=== PATIENT | female | born 1980 | race Caucasian/White ===

== ENCOUNTER 2016-07-01 09:21 | Emergency (ER) | payer BC, SELFPAY ==
[2016-07-01 09:44] VITALS: TEMP 98.7; BMI 27.1
--- NOTE | 2016-07-01 10:20 | EDPRACDOC ---
- General Information Chief Complaint: Fall Stated Complaint: FALL (RECTAL BLEED) Time Seen by Provider: 07/01/16 10:11 Mode of Arrival: Car Home Medications: Home Medications Dicyclomine HCl [Bentyl] 20 - 40 mg PO QID PRN 03/17/15 Ondansetron [Zofran Odt] 8 mg PO Q8H PRN 03/17/15 Ethinyl Estradiol/Drospirenone [Loryna 3 mg-0.02 mg Tablet] 1 tab PO HS Clonazepam [Klonopin] 2 mg PO BID PRN 10/01/15 Eluxadoline [Viberzi] 100 mg PO BID 10/01/15 Propranolol HCl [Inderal] 60 mg PO BID 10/01/15 Ranitidine [Zantac] 150 mg PO BID 10/01/15 Budesonide [Budesonide EC] 9 mg PO DAILY PRN 07/01/16 Escitalopram Oxalate [Lexapro] 20 mg PO DAILY 07/01/16 Hydromorphone HCl [Dilaudid] 4 mg PO .8-12H PRN 07/01/16 Promethazine HCl 25 mg PO Q6-8H PRN 07/01/16 Quetiapine Fumarate [Seroquel] 50 - 100 mg PO HS 07/01/16 Zonisamide [Zonegran] 200 mg PO HS 07/01/16 Allergies/Adverse Reactions: Allergies Allergy/AdvReac Type Severity Reaction Status Date / Time aspirin [From Fiorinal] Allergy See Verified 07/01/16 10:31 Comments butalbital [From Fiorinal] Allergy See Verified 07/01/16 10:31 Comments caffeine [From Fiorinal] Allergy See Verified 07/01/16 10:31 Comments clindamycin Allergy See Verified 07/01/16 10:31 Comments isoniazid Allergy See Verified 07/01/16 10:31 Comments ketoprofen Allergy See Verified 07/01/16 10:31 Comments NSAIDS (Non-Steroidal Allergy See Verified 07/01/16 10:31 Anti-Inflamma Comments rifampin Allergy See Verified 07/01/16 10:31 Comments - History of Present Illness Onset: TUESDAY HPI: PT STATES THAT SHE FELL ON THE ICE ON TUESDAY, INJURED HER TAILBONE, PT COMPLAINS OF SHARP, STABBING PAIN IN TAILBONE, STATES PAIN IS WORSE WITH SITTING , LAYING AND WALKING. PT STATES THAT SHE WOKE UP THIS MORNING AND HER CLOTHES WERE "SATURATED" WITH BLOOD, STATES SHE HAD A "BLACK, TARRY" BM TODAY WELL. PT STATES NOW HAVING PAIN IN HER LOWER BACK AND ABDOMEN. PT STATES THAT SHE HAS A HX OF "COLITIS", BUT THIS IS DIFFERENT, NO N/V. Bleeding Duration: Reports: Intermittent Bleeding Description: Reports: Spontaneous Recent Use Of: Reports: None Relevant History: Reports: None Prehospital Care: Reports: None Pain Severity: None Vomitus: Reports: None Stools: Reports: Tarry Black Associated Signs and Symptoms: Reports: Abdominal Pain, Other (BACK PAIN) ED Past Medical History - History Reviewed Yes Nurses notes reviewed and agree except as marked - Patient Medical History Cardiac History: Reports: Hypertension GI/ History: Reports: Urinary Tract Infection, PMH GI Yes/No Other (COLITIS) Psychological History: Reports: Anxiety Systemic History: Denies: Cancer Surgical History: Reports: Cholecystectomy - Family Medical History Reports: Cancer (MAT GRANDMOTHER) - Social Medical History Smoking Status: Never smoker ETOH: None Substance Abuse: None EDM Review of Systems - Review of Systems Constitutional: Weakness. negative: Chills, Fever, Fatigue Eyes: negative: Blurred Vision, Double Vision Ears: negative: Drainage, Pain Throat: negative: Pain Nose: negative: Congestion, Discharge Respiratory: negative: Cough, Shortness of Breath, Wheezing Cardiovascular: negative: Chest Pain, Palpitations Gastrointestinal: Melena, Pain. negative: Constipation, Diarrhea, Nausea, Vomiting Genitourinary: negative: Dysuria, Frequency Neurological: Dizziness. negative: Headache, Numbness, Weakness Musculoskeletal: Back Integumentary: No Symptoms Reported - Physical Exam Constitutional: Alert (Awake), No apparent distress Oriented to: Time, Person, Place Last recorded Vital Signs: Last Vital Signs Temp 98.7 F 07/01/16 09:37 Pulse 72 07/01/16 10:07 Resp 14 07/01/16 10:07 BP 109/66 07/01/16 10:07 Pulse Ox 97 07/01/16 10:07 Oxygen Pulse Oxygen Saturation 97 O2 Device Room Air Oxygen Flow Rate Fraction of Inspired Oxygen ( FIO2) - HEENT Head: Normal ( normocephalic) Eye Exam: Normal (PERRL, EOMI, Sclera white) Oropharynx: Normal (Pharynx:Moist without exudate,Gums-no swelling) Tympanic Membrane: Normal ENT EAC: Normal TMJ: Normal Nose: No Symptoms Reported (septum midline) Neck: Normal (FROM, trachea at midline) - Respiratory/Cardiovascular Respiratory: Normal - CTA (BBS clear to auscultation without adventitious sounds ) Cardiovascular: Normal (RRR without murmur, gallop or rub) - GI Auscultation: Normal (NABS) Palpation: Normal (Soft,No rebound or guarding, non distended) Tenderness: Mild, LLQ. negative: Guarding, Rebound, Rigidity Talbert's Sign: Negative Rectal Exam: Heme negative stool, Rectal Tone Stool: Brown - Musculoskeletal Back: Normal (Non-Tender) Extremities: Normal (Normal tone, Pulses 2+ No cyanosis or edema, FROM) - Integumentary Skin: Normal, Warm, Dry Lymphatics: Normal (no adenopathy) - Neurologic Memory Impaired: Normal Motor Function: Normal (Normal tone, Pulses 2+ No cyanosis or edema, FROM) Cranial Nerve: Normal (CN II-X11 intact sensation, strength 5/5) Cerebellar: Normal Mood Description: Normal Perception: Normal - Differential Diagnosis Diverticulosis, Esophagitis, Gastritis, Inflammatory Bowel Dx - Re-evaluation Re-evaluation 1 Re-evaluation Time: 12:46 (STABLE, HEME NEG STOOL) - Results 07/01/16 10:30 07/01/16 10:30 07/01/16 12:43 Laboratory Results - last 24 hr 07/01/16 07/01/16 07/01/16 10:30 10:30 10:30 WBC 7.0 RBC 4.08 L Hgb 12.6 Hct 36.9 MCV 90 MCH 30.9 MCHC 34.2 RDW 13.2 Plt Count 259 MPV 7.9 Neut % (Auto) 63.6 Lymph % (Auto) 27.6 Clay % (Auto) 7.3 Eos % (Auto) 0.8 Baso % (Auto) 0.7 Absolute Neuts (auto) 4.41 Absolute Lymphs (auto) 1.89 Sodium 140 Potassium 4.5 Chloride 108 H Carbon Dioxide 23 Anion Gap 14 BUN 9 Creatinine 0.80 Estimated GFR (MDRD) > 60 Glucose 96 Calculated Osmolality 268 L Calcium 9.6 Corrected Calcium 9.7 Total Bilirubin 0.5 AST 10 L ALT 18 Alkaline Phosphatase 55 Total Protein 7.0 Albumin 3.9 Lipase 113 Urine Color Urine Clarity Urine pH Ur Specific [place] Urine Protein Urine Glucose (UA) Urine Ketones Urine Occult Blood Urine Nitrite Urine Bilirubin Urine Urobilinogen Ur Leukocyte Esterase Urine RBC Urine WBC Ur Epithelial Cells Urine Bacteria Urine Mucus Urine Test Blood Type A POSITIVE Antibody Screen Negative 07/01/16 07/01/16 10:53 10:53 WBC RBC Hgb Hct MCV MCH MCHC RDW Plt Count MPV Neut % (Auto) Lymph % (Auto) Clay % (Auto) Eos % (Auto) Baso % (Auto) Absolute Neuts (auto) Absolute Lymphs (auto) Sodium Potassium Chloride Carbon Dioxide Anion Gap BUN Creatinine Estimated GFR (MDRD) Glucose Calculated Osmolality Calcium Corrected Calcium Total Bilirubin AST ALT Alkaline Phosphatase Total Protein Albumin Lipase Urine Color Yellow Urine Clarity Clear Urine pH 5.0 Ur Specific [place] 1.025 Urine Protein Neg Urine Glucose (UA) Neg Urine Ketones Neg Urine Occult Blood 1+ H Urine Nitrite Neg Urine Bilirubin Neg Urine Urobilinogen <2.0 Ur Leukocyte Esterase Neg Urine RBC 2-5 Urine WBC 0-2 Ur Epithelial Cells 2+ Urine Bacteria Few Urine Mucus Mod H Urine Test Neg Blood Type Antibody Screen - Diagnostic Imaging CT ABD/PELVIS Image interpreted by: Radiologist CT ABDOMEN AND PELVIS WITH CONTRAST TECHNIQUE: Multidetector CT imaging of the abdomen and pelvis was performed using the standard protocol following bolus administration of intravenous contrast. CONTRAST: 80 cc Isovue COMPARISON: 03/17/2015 FINDINGS: Sagittal images of the spine shows no acute fractures. Minimal degenerative changes lower thoracic spine. Sagittal view of the sacrum is unremarkable. The coccyx bone is unremarkable. Enhanced liver is unremarkable. No liver laceration. No lower rib fractures are noted. The lung bases are unremarkable. Bilateral SI joints are unremarkable. Status postcholecystectomy. The pancreas, spleen and adrenal glands are unremarkable. Kidneys are symmetrical in size and enhancement. No hydronephrosis or hydroureter. No renal laceration. Delayed renal images shows bilateral renal symmetrical excretion. Bilateral visualized proximal ureter is unremarkable. Abdominal aorta is unremarkable. Moderate stool and gas noted within right colon and cecum. There is no pericecal inflammation. Status post appendectomy. The terminal ileum is unremarkable. No small bowel obstruction. No ascites or free air. No adenopathy. Moderate stool and gas noted within transverse colon. The descending colon is partially empty collapsed. Some colonic stool noted within partially collapsed sigmoid colon. Some colonic gas noted within rectum. The uterus is anteflexed normal size. No adnexal masses noted. Visualized ovaries are unremarkable. IMPRESSION: 1. No evidence of visceral injury within abdomen or pelvis. 2. No acute fractures are noted. 3. Status postcholecystectomy. 4. No hydronephrosis or hydroureter. 5. Moderate stool and gas noted within cecum and right colon. No pericecal inflammation. Status post appendectomy. 6. No small bowel obstruction. - Additional Information CONTROLLED SUBSTANCE HISTORY REVIEWED, PT REGULARLY RECEIVES DILAUDID [address] BURKS, LAST RECEIVED #30 ON 06/18/16. Decision Time to Discharge: 12:47 - Departure Disposition: Home Condition: Stable Final Diagnosis: Coccyx pain, ALLEGED GI BLEEDING Instructions: RICE: Routine Care for Injuries Education/Counseling Given To: Patient Education/Counseling Given Regarding: Diagnosis, Treatment, Prognosis, Follow Up Referrals: Roseanne Burks MD [NonStaff] - One Week Additional Instructions: REST, DRINK PLENTY OF FLUIDS, CONTINUE WITH YOUR USUAL MEDICATIONS BEFORE.
[2016-07-01] MEDS ORDERED: MORPHINE 4 MG/ML INJECTION IV ONE (10:22)
[2016-07-01] MEDS ORDERED: NS 1,000 ML IV ONE (10:22)
[2016-07-01] MEDS ORDERED: ONDANSETRON HCL 4 MG/2 ML VIAL IV ONE (10:22)
[2016-07-01 10:38] LABS: AUTOMATED BASOPHIL 0.7 % (0-2); AUTOMATED EOSINOPHIL 0.8 % (0-5); AUTOMATED LYMPH 27.6 % (17-44); AUTOMATED MONOCYTE 7.3 % (3-10); AUTOMATED NEUTROPHIL 63.6 % (45-76); MPV 7.9 fL (7.4-10.4)
[2016-07-01 10:56] LABS: BLOOD UREA NITROGEN 9 MG/DL (7-17); CALC CORRECTED 9.7 MG/DL (8.4-10.2); CALCIUM 9.6 MG/DL (8.4-10.2); CALCULATED OSMOLALITY 268 MOs/Kg (270-290); CHLORIDE 108 mEq/L (98-107); GLUCOSE 96 MG/DL (70-99); SODIUM LEVEL 140 mEq/L (137-146)
[2016-07-01] MEDS ORDERED: Pharmacy Review for Metformin - IV Contrast Given SCH (11:00)
[2016-07-01 11:16] LABS: LEUKOCYTES/URINE NEG (NEGATIVE); NITRITE/URINE NEG (NEGATIVE); URINE OCCULT BLOOD 1+ (NEG/TRACE); WBC/URINE 0-2 (0-5)
[2016-07-01] MEDS ORDERED: HYDROmorphone 1 MG INJECTION IV ONE (11:45)
--- NOTE | 2016-07-01 12:25 | DIRPT ---
CLINICAL DATA: Abdominal pain, GI bleed, fell on ice EXAM: CT ABDOMEN AND PELVIS WITH CONTRAST TECHNIQUE: Multidetector CT imaging of the abdomen and pelvis was performed using the standard protocol following bolus administration of intravenous contrast. CONTRAST: 80 cc Isovue COMPARISON: 03/17/2015 FINDINGS: Sagittal images of the spine shows no acute fractures. Minimal degenerative changes lower thoracic spine. Sagittal view of the sacrum is unremarkable. The coccyx bone is unremarkable. Enhanced liver is unremarkable. No liver laceration. No lower rib fractures are noted. The lung bases are unremarkable. Bilateral SI joints are unremarkable. Status postcholecystectomy. The pancreas, spleen and adrenal glands are unremarkable. Kidneys are symmetrical in size and enhancement. No hydronephrosis or hydroureter. No renal laceration. Delayed renal images shows bilateral renal symmetrical excretion. Bilateral visualized proximal ureter is unremarkable. Abdominal aorta is unremarkable. Moderate stool and gas noted within right colon and cecum. There is no pericecal inflammation. Status post appendectomy. The terminal ileum is unremarkable. No small bowel obstruction. No ascites or free air. No adenopathy. Moderate stool and gas noted within transverse colon. The descending colon is partially empty collapsed. Some colonic stool noted within partially collapsed sigmoid colon. Some colonic gas noted within rectum. The uterus is anteflexed normal size. No adnexal masses noted. Visualized ovaries are unremarkable. IMPRESSION: 1. No evidence of visceral injury within abdomen or pelvis. 2. No acute fractures are noted. 3. Status postcholecystectomy. 4. No hydronephrosis or hydroureter. 5. Moderate stool and gas noted within cecum and right colon. No pericecal inflammation. Status post appendectomy. 6. No small bowel obstruction. Electronically Signed By: Woo Bullard M.D. On: 07/01/2016 12:23
[2016-07-01 13:12] VITALS: BP 97/60; PULSE 74
== END 2016-07-01 13:09 | disposition home or self-care (01) ==
LOC: ED 09:21
DX: M53.3 Sacrococcygeal disorders, not elsewhere classified (principal); K92.1 Melena
CPT/HCPCS: 36415; 74177; 80053; 81001; 81025; 82270; 83690; 85025; 86850; 86900; 86901; 96361; 96374; 96375; 99284; A9698; J1170; J2270; J2405